=== PATIENT | male | born 1970 | race African-American/Black ===

== ENCOUNTER 2017-11-10 13:43 | Emergency (ER) | payer MEDICAID, MEDICARE ==
[~2017-11-10] VITALS: Ht 170.2 cm; Wt 79.0 kg
[~2017-11-10 13:43] MED LIST: ADV100 IH; DILT240C11 PO; FLUT16SP2 NS; LORA10CA PO; MONT5TAB13 PO
[2017-11-10] MEDS ORDERED: FLUT1AER IH (14:08)
[2017-11-10] MEDS ORDERED: FLUT16H NASAL (14:08)
[2017-11-10] MEDS ORDERED: DILT30 PO (14:08)
[2017-11-10] MEDS ORDERED: MONT10TA21 PO (14:09)
[2017-11-10] MEDS ORDERED: TERB250 PO (14:09)
[2017-11-10 15:24] LABS: BASOPHILS % (AUTO) 1.4 % (0.0-2.0); EOSINOPHILS % (AUTO) 0.8 % (1.0-6.0); HEMATOCRIT 39.4 % (41-53); HEMOGLOBIN 13.6 g/dL (13.5-17.5); MEAN CORPUSCULAR HEMOGLOBIN 33.5 pg (26.0-34.0); MEAN CORPUSCULAR HGB CONC 34.5 G/dL (31.0-37.0); MEAN CORPUSCULAR VOLUME 97 fL (80-100); MONOCYTES # (AUTO) 1.4 K/uL (0.1-1.0); MONOCYTES % (AUTO) 9.7 % (2.0-9.0); NEUTROPHILS # (AUTO) 10.5 K/uL (1.8-7.7); NEUTROPHILS % (AUTO) 74.1 % (40.0-70.0); PLATELET COUNT (AUTO) 197 K/uL (150-450); RED BLOOD CELL COUNT(AUTO) 4.06 MIL/uL (4.50-5.90); RED CELL DISTRIBUTION WIDTH 14.1 % (11.5-14.5)
[2017-11-10] MEDS ORDERED: MORPHINE SULFATE 2 MG/ML SYRINGE IVP ONE (15:30)
[2017-11-10] MEDS ORDERED: ONDANSETRON HCL 4 MG/2 ML VIAL IVP ONE (15:30)
[2017-11-10 15:33] LABS: ANION GAP 2 mmol/L (8-16); CALCIUM, TOTAL 8.4 mg/dL (8.8-10.5); CARBON DIOXIDE 33 mmol/L (22-29); CHLORIDE 102 mmol/L (98-107); CREATININE 1.43 mg/dL (0.60-1.30); GLOMERULAR FILTR. RATE CALC > 60 mL/min (>60); GLUCOSE,RANDOM 110 mg/dL (70-110); INR 0.9 (0.9-1.1); PROTHROMBIN TIME 9.9 SEC (9.4-11.6); SODIUM SERUM 137 mmol/L (136-145); UREA NITROGEN, BLOOD 15 mg/dL (7-18)
[2017-11-10 15:38] LABS: ALANINE AMINOTRANSFERASE 102 U/L (12-78); ALBUMIN 2.8 g/dL (3.4-5.0); ALKALINE PHOSPHATASE 174 U/L (46-116); ASPARTATE AMINOTRANSFERASE 58 U/L (15-37); BILIRUBIN,TOTAL 0.7 mg/dL (0.1-1.0); LIPASE 58 U/L (73-393); TOTAL PROTEIN, SERUM 7.3 g/dL (6.4-8.2)
[2017-11-10 15:41] LABS: LACTIC ACID 0.8 mmol/L (0.4-2.0)
[2017-11-10] MEDS ORDERED: SODIUM CHLORIDE 0.9% 1,000 ML IV ONE (15:45)
[2017-11-10] MEDS ORDERED: IOVERSOL 350 MG/ML 150 ML VIAL ONE (16:19)
[2017-11-10] MEDS ORDERED: SODIUM CHLORIDE 0.9% 100 ML ONE (16:19)
[2017-11-10 17:12] LABS: APPEARANCE,URINE SLIGHTLY CLOUDY (CLEAR); GLUCOSE, URINE (UA) NEGATIVE (NEGATIVE); OCCULT BLOOD,URINE NEGATIVE (NEGATIVE); PROTEIN,URINE TRACE (NEGATIVE)
[2017-11-10 17:13] LABS: BILIRUBIN,URINE NEGATIVE (NEGATIVE); KETONES,URINE NEGATIVE (NEGATIVE); LEUKOCYTE ESTERASE ,URINE NEGATIVE (NEGATIVE); NITRATE,URINE NEGATIVE (NEGATIVE); UROBILINOGEN,URINE 0.2 mg/dL (<=1.0)
[2017-11-10 17:42] LABS: RBC,URINE None Seen /HPF (0-2)
[2017-11-10 17:43] LABS: BACTERIA,URINE None Seen /HPF (None Seen); SQUAMOUS EPITHELIAL CELL,UR Rare /LPF (None Seen); WBC,URINE 0-2 /HPF (0-5)
[2017-11-10 18:35] VITALS: BP 112/55
== END 2017-11-10 18:50 | disposition home or self-care (01) ==
LOC: EMS 13:45
DX: S20.211A Contusion of right front wall of thorax, initial encounter (principal); J18.9 Pneumonia, unspecified organism; I10 Essential (primary) hypertension; J45.909 Unspecified asthma, uncomplicated; Y04.0XXA Assault by unarmed brawl or fight, initial encounter; Y93.89 Activity, other specified; Y92.89 Other specified places as the place of occurrence of the external cause; Y99.8 Other external cause status
CPT/HCPCS: 36415; 71101; 71260; 72193; 74160; 80053; 81001; 83605; 83690; 85025; 85610; 96374; 96375; 99285; J2270; J2405; J7050; Q9967

== ENCOUNTER 2022-01-05 10:07 | Emergency (ER) | payer MEDICARE, MEDICAID ==
[~2022-01-05] VITALS: Ht 167.6 cm; Wt 84.0 kg
[~2022-01-05 10:07] MED LIST changes: -ADV100 IH; -DILT240C11 PO; +DILT30TA4 PO; +FLUT16H NASAL; -FLUT16SP2 NS; +FLUT1AER IH; +MONT-35 PO; -MONT5TAB13 PO; +TERB250T90 PO
[2022-01-05] MEDS ORDERED: OMEP20 PO (11:23)
[2022-01-05] MEDS ORDERED: MONT-35 PO ×2 (11:23→13:40)
[2022-01-05] MEDS ORDERED: OMEP20CA12 PO (13:42)
[2022-01-05] MEDS ORDERED: LORA10TA7 PO (13:42)
[2022-01-05] MEDS ORDERED: FLUT16H NASAL (13:43)
[2022-01-05] MEDS ORDERED: FLUT1BLS IH (13:44)
[2022-01-05 13:54] VITALS: BP 115/47
== END 2022-01-05 13:56 | disposition home or self-care (01) ==
LOC: EMS 10:09
DX: J45.909 Unspecified asthma, uncomplicated (principal); K21.9 Gastro-esophageal reflux disease without esophagitis; I10 Essential (primary) hypertension; Q90.9 Down syndrome, unspecified; Z87.898 Personal history of other specified conditions
CPT/HCPCS: 99281; Z7502